=== PATIENT | male | born 1950 | race Caucasian/White ===

== ENCOUNTER 2018-12-27 23:45 | Inpatient (IN) | payer BC, OTHER ==
[~2018-12-27] VITALS: Ht 175.3 cm; Wt 51.7 kg
[2018-12-28] MEDS ORDERED: INSU100V12 SQ (00:58)
[2018-12-28] MEDS ORDERED: PREG75 PO (00:58)
[2018-12-28] MEDS ORDERED: FOLI1 PO (00:58)
[2018-12-28] MEDS ORDERED: HEPA500041 SQ (00:58)
[2018-12-28] MEDS ORDERED: MULT1CAP32 PO (00:58)
[2018-12-28] MEDS ORDERED: KDUR10 PO (00:58)
[2018-12-28] MEDS ORDERED: PANT40TA25 PO (00:58)
[2018-12-28] MEDS ORDERED: SITA50 PO (00:58)
[2018-12-28] MEDS ORDERED: INSU100V SQ (00:58)
[2018-12-28] MEDS ORDERED: ARFO15VI2 NEB (00:58)
[2018-12-28] MEDS ORDERED: THIA100T67 PO (00:58)
[2018-12-28 01:10] LABS: BASOPHILS % (AUTO) 2.1 % (0.0-2.0); EOSINOPHILS % (AUTO) 5.1 % (1.0-6.0); HEMATOCRIT 33.5 % (41-53); HEMOGLOBIN 11.2 g/dL (13.5-17.5); LYMPHOCYTES # (AUTO) 1.6 K/uL (1.0-4.8); LYMPHOCYTES % (AUTO) 18.6 % (22.0-44.0); MEAN CORPUSCULAR HEMOGLOBIN 30.5 pg (26.0-34.0); MEAN CORPUSCULAR HGB CONC 33.4 G/dL (31.0-37.0); MEAN CORPUSCULAR VOLUME 91 fL (80-100); MONOCYTES # (AUTO) 0.9 K/uL (0.1-1.0); MONOCYTES % (AUTO) 10.4 % (2.0-9.0); NEUTROPHILS # (AUTO) 5.6 K/uL (1.8-7.7); NEUTROPHILS % (AUTO) 63.8 % (40.0-70.0); PLATELET COUNT (AUTO) 396 K/uL (150-450); RED BLOOD CELL COUNT(AUTO) 3.68 MIL/uL (4.50-5.90); RED CELL DISTRIBUTION WIDTH 12.6 % (11.5-14.5)
[2018-12-28 01:23] LABS: ANION GAP 11 mmol/L (8-16); CALCIUM, TOTAL 9.1 mg/dL (8.8-10.5); CARBON DIOXIDE 29 mmol/L (22-29); CHLORIDE 95 mmol/L (98-107); CREATININE 0.87 mg/dL (0.60-1.30); GLOMERULAR FILTR. RATE CALC > 60 mL/min (>60); GLUCOSE,RANDOM 348 mg/dL (70-110); POTASSIUM 4.1 mmol/L (3.5-5.1); PROTHROMBIN TIME 10.7 SEC (9.4-11.6); SODIUM SERUM 135 mmol/L (136-145); UREA NITROGEN, BLOOD 20 mg/dL (7-18)
[2018-12-28 01:29] LABS: ALANINE AMINOTRANSFERASE 19 U/L (12-78); ALBUMIN 3.4 g/dL (3.4-5.0); ALKALINE PHOSPHATASE 131 U/L (46-116); ASPARTATE AMINOTRANSFERASE 10 U/L (15-37); BILIRUBIN,TOTAL 0.3 mg/dL (0.1-1.0); CREATINE KINASE, TOTAL ONLY 55 U/L (39-308); TOTAL PROTEIN, SERUM 7.5 g/dL (6.4-8.2)
[2018-12-28 01:34] LABS: GLUCOMETER DEV NAME(LOC) AHU.; GLUCOSE,POINT OF CARE 327 MG/DL (70-110)
[2018-12-28 01:41] LABS: B-TYPE NATRIURETIC PEPTIDE 103 pg/mL (0-100)
[2018-12-28] MEDS ORDERED: ALBUTEROL SULFATE 2.5 MG/0.5 ML NEB SOLUTION NEB ONE (02:15)
[2018-12-28] MEDS ORDERED: INSULIN REGULAR, HUMAN 100 UNITS/ML IVP ONE (02:15)
[2018-12-28] MEDS ORDERED: SODIUM CHLORIDE 0.9% 1,000 ML IV ONE (02:15)
[2018-12-28] MEDS ORDERED: MethylPREDNISolone SOD SUCC 125 MG/2 ML VIAL IVP ONE (02:15)
[2018-12-28] MEDS ORDERED: IPRATROPIUM BROMIDE 0.5 MG/2.5 ML NEB SOLUTION NEB ONE (02:15)
[2018-12-28] MEDS ORDERED: ACETAMINOPHEN 325 MG TABLET PO PRN ×2 (03:15→05:00)
[2018-12-28] MEDS ORDERED: 0.9% SODIUM CHLORIDE 10 ML SYRINGE IVP PRN (03:15)
[2018-12-28] MEDS ORDERED: ZOLPIDEM TARTRATE 5 MG TABLET PO PRN (05:00)
[2018-12-28] MEDS ORDERED: DEXTROSE 50%-WATER 25 GM/50 ML SYRINGE IVP PRN ×3 (05:00→22:45)
[2018-12-28] MEDS ORDERED: HYDROCODONE/ACETAMINOPHEN 5-325 MG TABLET PO PRN (05:00)
[2018-12-28] MEDS ORDERED: ONDANSETRON HCL 4 MG/2 ML VIAL IVP PRN (05:00)
[2018-12-28] MEDS ORDERED: ALBUTEROL SULFATE 2.5 MG/0.5 ML NEB SOLUTION NEB PRN (05:00)
[2018-12-28] MEDS ORDERED: MORPHINE SULFATE 2 MG/ML SYRINGE IVP PRN (05:00)
[2018-12-28] MEDS ORDERED: MAGNESIUM HYDROXIDE SUSPENSION 30 ML UDCUP PO PRN (05:00)
[2018-12-28] MEDS ORDERED: BISACODYL 10 MG RECTAL RECTAL SUPPOSITORY PR PRN (05:00)
[2018-12-28] MEDS ORDERED: IPRATROPIUM BROMIDE 0.5 MG/2.5 ML NEB SOLUTION NEB PRN (05:00)
[2018-12-28] MEDS: CefTRIAXone 1 GM/DEXTROSE 50 ML IV SCH (06:11)
[2018-12-28] MEDS: AZITHROMYCIN 500 MG/NS 250 ML IV SCH (06:11)
[2018-12-28] MEDS: MethylPREDNISolone SOD SUCC 125 MG/2 ML VIAL IVP SCH ×4 (06:16→23:48)
[2018-12-28] MEDS: INSULIN LISPRO 100 UNITS/ML SQ PRN ×4 (08:01→22:46)
[2018-12-28 08:03] LABS: GLUCOMETER DEV NAME(LOC) AHU.; GLUCOSE,POINT OF CARE 385 MG/DL (70-110)
[2018-12-28] MEDS: DOCUSATE SODIUM 100 MG CAPSULE PO SCH ×2 (08:26→21:55)
[2018-12-28] MEDS: HEPARIN SODIUM,PORCINE 5,000 UNITS/ML VIAL SQ SCH ×3 (08:27→23:48)
[2018-12-28] MEDS: PANTOPRAZOLE SODIUM 40 MG DR TABLET PO SCH (08:27)
[2018-12-28] MEDS: PREGABALIN 75 MG CAPSULE PO SCH ×2 (08:27→21:55)
[2018-12-28] MEDS: GuaiFENesin SR 600 MG ER TABLET PO SCH ×2 (08:27→21:55)
[2018-12-28] MEDS: BENZONATATE 100 MG CAPSULE PO SCH ×3 (08:27→21:55)
[2018-12-28] MEDS: IPRATROPIUM BROMIDE 0.5 MG/2.5 ML NEB SOLUTION NEB SCH ×3 (08:38→20:25)
[2018-12-28] MEDS: ALBUTEROL SULFATE 2.5 MG/0.5 ML NEB SOLUTION NEB SCH ×3 (08:38→20:26)
[2018-12-28 11:24] LABS: GLUCOMETER DEV NAME(LOC) AHU.; GLUCOSE,POINT OF CARE 436 MG/DL (70-110)
[2018-12-28] MEDS ORDERED: INSULIN LISPRO 100 UNITS/ML SQ ONE (11:45)
[2018-12-28] MEDS ORDERED: HEPA500018 SQ (11:52)
[2018-12-28 12:44] LABS: GLUCOMETER DEV NAME(LOC) AHU.; GLUCOSE,POINT OF CARE 481 MG/DL (70-110)
[2018-12-28 17:35] LABS: GLUCOMETER DEV NAME(LOC) AHU.; GLUCOSE,POINT OF CARE 309 MG/DL (70-110)
[2018-12-28 21:40] VITALS: BP 122/65
[2018-12-28] MEDS: INSULIN GLARGINE,HUM.REC.ANLOG 100 UNITS/ML SQ SCH (21:58)
[2018-12-28 23:45] VITALS: BP 139/72
[2018-12-29] MEDS ORDERED: PNEUMOCOCCAL VACCINE POLYVALENT 0.5 ML VIAL [PPSV23] IM ONE (00:15)
[2018-12-29] MEDS ORDERED: SODIUM CHLORIDE 0.9% 250 ML IV ONE (01:30)
[2018-12-29] MEDS: IPRATROPIUM BROMIDE 0.5 MG/2.5 ML NEB SOLUTION NEB SCH ×4 (02:22→19:39)
[2018-12-29] MEDS: ALBUTEROL SULFATE 2.5 MG/0.5 ML NEB SOLUTION NEB SCH ×4 (02:23→19:40)
[2018-12-29 04:55] VITALS: BP 118/70
[2018-12-29] MEDS: CefTRIAXone 1 GM/DEXTROSE 50 ML IV SCH (05:40)
[2018-12-29] MEDS: AZITHROMYCIN 500 MG/NS 250 ML IV SCH (05:41)
[2018-12-29] MEDS: MethylPREDNISolone SOD SUCC 125 MG/2 ML VIAL IVP SCH ×3 (05:43→17:04)
[2018-12-29] MEDS: INSULIN LISPRO 100 UNITS/ML SQ PRN ×4 (05:49→21:52)
[2018-12-29 05:58] LABS: BASOPHILS % (AUTO) 0.1 % (0.0-2.0); EOSINOPHILS % (AUTO) 0 % (1.0-6.0); HEMATOCRIT 32.4 % (41-53); HEMOGLOBIN 10.8 g/dL (13.5-17.5); LYMPHOCYTES # (AUTO) 0.9 K/uL (1.0-4.8); LYMPHOCYTES % (AUTO) 5.4 % (22.0-44.0); MEAN CORPUSCULAR HEMOGLOBIN 30.5 pg (26.0-34.0); MEAN CORPUSCULAR HGB CONC 33.3 G/dL (31.0-37.0); MEAN CORPUSCULAR VOLUME 92 fL (80-100); MONOCYTES # (AUTO) 0.3 K/uL (0.1-1.0); MONOCYTES % (AUTO) 1.6 % (2.0-9.0); NEUTROPHILS # (AUTO) 15.8 K/uL (1.8-7.7); PLATELET COUNT (AUTO) 365 K/uL (150-450); RED BLOOD CELL COUNT(AUTO) 3.54 MIL/uL (4.50-5.90); RED CELL DISTRIBUTION WIDTH 13.1 % (11.5-14.5)
[2018-12-29 06:05] LABS: GLUCOMETER DEV NAME(LOC) 5S.1; GLUCOSE,POINT OF CARE 432 MG/DL (70-110)
[2018-12-29 06:25] LABS: NEUTROPHILS % (AUTO) 92.9 % (40.0-70.0)
[2018-12-29 06:39] LABS: ALANINE AMINOTRANSFERASE 16 U/L (12-78); ALKALINE PHOSPHATASE 92 U/L (46-116); ANION GAP 11 mmol/L (8-16); ASPARTATE AMINOTRANSFERASE 8 U/L (15-37); BILIRUBIN,TOTAL 0.2 mg/dL (0.1-1.0); CARBON DIOXIDE 25 mmol/L (22-29); CHLORIDE 98 mmol/L (98-107); GLOMERULAR FILTR. RATE CALC > 60 mL/min (>60); GLUCOSE,RANDOM 340 mg/dL (70-110); SODIUM SERUM 134 mmol/L (136-145); TOTAL PROTEIN, SERUM 6.7 g/dL (6.4-8.2); UREA NITROGEN, BLOOD 23 mg/dL (7-18)
[2018-12-29 07:02] VITALS: BP 118/60
[2018-12-29 07:24] LABS: GLUCOMETER DEV NAME(LOC) 5N.1; GLUCOSE,POINT OF CARE 342 MG/DL (70-110)
[2018-12-29] MEDS: DOCUSATE SODIUM 100 MG CAPSULE PO SCH ×2 (08:43→21:14)
[2018-12-29] MEDS: HEPARIN SODIUM,PORCINE 5,000 UNITS/ML VIAL SQ SCH ×2 (08:43→17:04)
[2018-12-29] MEDS: PANTOPRAZOLE SODIUM 40 MG DR TABLET PO SCH (08:44)
[2018-12-29] MEDS: PREGABALIN 75 MG CAPSULE PO SCH ×2 (08:44→21:14)
[2018-12-29] MEDS: GuaiFENesin SR 600 MG ER TABLET PO SCH ×2 (08:44→21:14)
[2018-12-29] MEDS: BENZONATATE 100 MG CAPSULE PO SCH ×3 (08:44→21:14)
[2018-12-29 11:02] VITALS: BP 122/72
[2018-12-29] MEDS ORDERED: INSULIN LISPRO 100 UNITS/ML SQ ONE (11:15)
[2018-12-29 12:24] LABS: GLUCOMETER DEV NAME(LOC) 5N.1; GLUCOSE,POINT OF CARE 418 MG/DL (70-110)
[2018-12-29 14:55] VITALS: BP 116/59
[2018-12-29 18:49] LABS: GLUCOMETER DEV NAME(LOC) 5S.1; GLUCOSE,POINT OF CARE 352 MG/DL (70-110)
[2018-12-29 20:58] VITALS: BP 143/65
[2018-12-29] MEDS: INSULIN GLARGINE,HUM.REC.ANLOG 100 UNITS/ML SQ SCH (21:52)
[2018-12-29 23:53] VITALS: BP 120/48
[2018-12-30 00:19] LABS: GLUCOMETER DEV NAME(LOC) 5N.1; GLUCOSE,POINT OF CARE 281 MG/DL (70-110)
[2018-12-30] MEDS: HEPARIN SODIUM,PORCINE 5,000 UNITS/ML VIAL SQ SCH ×3 (00:47→16:15)
[2018-12-30] MEDS: MethylPREDNISolone SOD SUCC 125 MG/2 ML VIAL IVP SCH ×4 (00:48→18:00)
[2018-12-30] MEDS: ALBUTEROL SULFATE 2.5 MG/0.5 ML NEB SOLUTION NEB SCH ×3 (02:03→13:47)
[2018-12-30] MEDS: IPRATROPIUM BROMIDE 0.5 MG/2.5 ML NEB SOLUTION NEB SCH ×3 (02:04→13:47)
[2018-12-30 04:37] VITALS: BP 116/51
[2018-12-30] MEDS: AZITHROMYCIN 500 MG/NS 250 ML IV SCH (05:14)
[2018-12-30] MEDS: CefTRIAXone 1 GM/DEXTROSE 50 ML IV SCH (05:14)
[2018-12-30] MEDS: INSULIN LISPRO 100 UNITS/ML SQ PRN ×2 (06:23→12:09)
[2018-12-30 07:45] VITALS: BP 124/68
[2018-12-30] MEDS: PANTOPRAZOLE SODIUM 40 MG DR TABLET PO SCH (08:51)
[2018-12-30] MEDS: BENZONATATE 100 MG CAPSULE PO SCH ×2 (08:51→16:15)
[2018-12-30] MEDS: DOCUSATE SODIUM 100 MG CAPSULE PO SCH (08:51)
[2018-12-30] MEDS: GuaiFENesin SR 600 MG ER TABLET PO SCH (08:51)
[2018-12-30] MEDS: PREGABALIN 75 MG CAPSULE PO SCH (08:52)
[2018-12-30 10:24] LABS: GLUCOMETER DEV NAME(LOC) 5S.1; GLUCOSE,POINT OF CARE 270 MG/DL (70-110)
[2018-12-30 11:14] VITALS: BP 146/72
[2018-12-30 13:04] LABS: GLUCOMETER DEV NAME(LOC) 5S.1; GLUCOSE,POINT OF CARE 219 MG/DL (70-110)
[2018-12-30] MEDS ORDERED: PRED20 PO (15:06)
[2018-12-30] MEDS ORDERED: PRED5 PO (15:07)
[2018-12-30] MEDS ORDERED: PRED10 PO (15:07)
[2018-12-30] MEDS ORDERED: ALBU8HFA IH (15:08)
[2018-12-30 15:36] VITALS: BP 142/72
== END 2018-12-30 18:55 | disposition home or self-care (01) | DRG 190 ==
LOC: EMS 23:47 → 5S 12-28 19:18
PROVIDERS: ADMIT Internal Medicine; ATTEND Internal Medicine
DX: J44.1 Chronic obstructive pulmonary disease with (acute) exacerbation (principal); E43 Unspecified severe protein-calorie malnutrition; Z68.1 Body mass index [BMI] 19.9 or less, adult; D64.9 Anemia, unspecified; D72.829 Elevated white blood cell count, unspecified; E11.65 Type 2 diabetes mellitus with hyperglycemia; I10 Essential (primary) hypertension; K21.9 Gastro-esophageal reflux disease without esophagitis; Z87.891 Personal history of nicotine dependence
CPT/HCPCS: 93005; 94060; 94640; 96372; 96374; 96375; G0378; J0456; J0696; J1644; J1815; J2930; J7030; J7050